=== PATIENT | female | born 1975 | race African-American/Black ===

== ENCOUNTER 2016-10-29 09:32 | Emergency (ER) | payer BC ==
[~2016-10-29] VITALS: Ht 175.3 cm; Wt 122.4 kg
[2016-10-29 09:43] VITALS: BP 140/99
[2016-10-29 10:26] LABS: HEMATOCRIT 33.5 % (36.0-46.0); MCH 23.9 PG (29.0-34.0); MCHC 31.3 G/DL (30.0-36.0); MCV 76.3 FL (83-99); MEAN PLAT.VOLUME 10.8 uM^3 (9.5-12.4); PLATELET COUNT 246 K/uL (156-360); RBC DIS.WIDTH-CV 17.4 % (11.8-14.6); RBC DIS.WIDTH-SD 46.2 % (39-53); RED BLOOD COUNT 4.39 M/uL (3.80-5.20); WHITE BLOOD COUNT 4.5 K/uL (4.1-10.2)
[2016-10-29 10:37] LABS: CHLORIDE 107 mEq/L (99-109); POTASSIUM 4.1 mEq/L (3.7-5.4); SODIUM 139 mEq/L (136-147)
[2016-10-29 10:39] LABS: GLUCOSE 101 mg/dL (70-99)
[2016-10-29 10:41] LABS: ANION GAP 9 MEQ/L (2-14)
[2016-10-29 10:43] LABS: GFR ESTIMATE (CALCULATED) > 59 mL/min/
[2016-10-29 10:44] LABS: UREA NITROGEN (BUN) 8 mg/dL (9-23)
[2016-10-29 10:46] LABS: TROP-I INTERPRETATION NEGATIVE; TROPONIN-I < 0.01 ng/mL (0.0-0.30)
== END 2016-10-29 12:52 | disposition left against medical advice (07) ==
LOC: EME 09:32
DX: R07.9 Chest pain, unspecified (principal); Z53.21 Procedure and treatment not carried out due to patient leaving prior to being seen by health care provider
CPT/HCPCS: 71020; 80048; 84484; 85027; 93005